=== PATIENT | male | born 1965 | race Caucasian/White ===

== ENCOUNTER → 2017-07-24 | Outpatient (CLI) | payer OTHER ==
[~2017-07-24] MED LIST: OMEP20CA59 PO
--- NOTE | 2017-07-24 08:55 | DIAGNOSTIC IMAGING REPORT ---
SINUSES-MAXILLOFACIAL W/O CT DOSE: 269.19 mGycm HISTORY: Sinusitis. Tendinous. J01.90 Acute ovpispwgoD67.80 Eustachian tube wxrbiaivzleW77.12 T TECHNIQUE: Multiaxial CT images of the paranasal sinuses were performed and reformatted in the coronal plane without the use of contrast. A dose lowering technique was utilized adhering to the principles of ALARA. COMPARISON: None. FINDINGS: Mastoid air cells are considered clear. Structures of the middle ear are unremarkable bilaterally. The ossicles are intact. Mild mucosal thickening of the ethmoid as well as sphenoid and maxillary sinuses. Soft tissue occlusion of the ostiomeatal bilaterally. Frontal sinuses are considered clear. No evidence for a bony destructive process. The nasal septum is midline. The orbits are unremarkable. IMPRESSION: 1. Mild/moderate mucosal thickening of virtually all major sinuses. 2. Soft tissue occlusion of the ostiomeatal units bilaterally. 3. The mastoids are clear. The above report was generated using voice recognition software. It may contain grammatical, syntax or spelling errors. Electronically signed by: Enrique Agudelo M.D. 07/24/2017 8:50 AM Dictated Date/Time: 07/24/2017 8:48 AM
== END | disposition home or self-care (01) ==
LOC: C.CTS 08:14
PROVIDERS: ATTEND Physician Assistant Medical
DX: H69.80 Other specified disorders of Eustachian tube, unspecified ear (principal); H93.12 Tinnitus, left ear; J01.90 Acute sinusitis, unspecified

== ENCOUNTER → 2017-08-24 | Outpatient (CLI) | payer OTHER ==
--- NOTE | 2017-08-24 12:28 | DIAGNOSTIC IMAGING REPORT ---
FUSION CT SINUSES W/O HISTORY: 52 years-old Male J01.80 Other acute sinusitis COMPARISON: Maxillofacial CT 07/24/2017 TECHNIQUE: Multiple axial CT images of the paranasal sinuses were obtained without contrast. Pipelinefx axial images also submitted. A dose lowering technique was used consistent with the principals of BRONWYN. FINDINGS: Mild mucosal thickening with bubbly secretions involve the sphenoid sinuses. There is mild to moderate right and mild left mucosal thickening of the maxillary sinuses. There is moderate mucosal thickening throughout the ethmoid air cells and inferior frontal sinuses bilaterally. There is slight progression of disease within the ethmoid sinuses and right maxillary sinus from comparison. Mild rightward bowing of the nasal septum. Mucosal thickening at the bilateral maxillary ostiomeatal units is present, right greater than left. Additionally, there is mucosal thickening without obstruction of the bilateral frontal ethmoidal and sphenoethmoidal recesses. There is no Dirk cell identified. No large richard bullosa. The nevin antonella appears normal. No facial bone fracture or dislocation identified. Degenerative changes involve the bilateral temporal mandibular joints. The mastoid air cells and middle ear cavities are clear bilaterally. Soft tissues are unremarkable. The imaged intracranial structures demonstrate no acute abnormality. IMPRESSION: 1. Multifocal paranasal sinus disease as above, slightly progressed from comparison study. 2. Mucosal thickening also involves the bilateral maxillary ostiomeatal units, frontal ethmoidal and sphenoethmoidal recesses. 3. Mild rightward bowing of the nasal septum. The above report was generated using voice recognition software. It may contain grammatical, syntax or spelling errors. Electronically signed by: Jai Simmons M.D. 08/24/2017 12:26 PM Dictated Date/Time: 08/24/2017 12:20 PM
== END | disposition home or self-care (01) ==
LOC: C.CTS 12:05
PROVIDERS: ATTEND Physician Assistant
DX: J01.80 Other acute sinusitis (principal)

== ENCOUNTER → 2017-08-24 | Outpatient (CLI) | payer OTHER ==
[2017-08-24 13:46] LABS: BLOOD UREA NITROGEN 20 mg/dl (7-18); CALCIUM 9.5 mg/dl (8.5-10.1); CARBON DIOXIDE 28 mmol/L (21-32); CREATININE 0.89 mg/dl (0.60-1.40); GLUCOSE 104 mg/dl (70-99); POTASSIUM 4.3 mmol/L (3.5-5.1); SODIUM 138 mmol/L (136-145)
== END | disposition home or self-care (01) ==
LOC: C.LABBC 09:29
PROVIDERS: ATTEND Physician Assistant Medical
DX: I10 Essential (primary) hypertension (principal)

== ENCOUNTER → 2017-11-04 | Outpatient (CLI) | payer OTHER ==
[~2017-11-04] MED LIST changes: +B-COTAB18 PO; +CYAN500T13 PO; +MAGNESIUM PO; -OMEP20CA59 PO; +PRLSR20 PO; +SILD1TAB11 PO; +VITAMIN C PO; +VITAMIN E PO
== END | disposition home or self-care (01) ==
LOC: C.LABBC 10:30
PROVIDERS: ATTEND Nurse Practitioner Adult Health
DX: N52.9 Male erectile dysfunction, unspecified (principal); Z12.5 Encounter for screening for malignant neoplasm of prostate

== ENCOUNTER → 2017-11-05 | Outpatient (CLI) | payer OTHER ==
[2017-11-05 13:07] LABS: BASO % 0.3 %; BASO ABS # 0.02 K/uL (0-0.2); EOS % 3.4 %; EOS ABS # 0.23 K/uL (0-0.5); HEMATOCRIT 44.3 % (42-52); HEMOGLOBIN 15.6 g/dL (14.0-18.0); IG# 0.01 K/uL (0.00-0.02); LYMPH % 28.9 %; LYMPH ABS # 1.95 K/uL (1.2-3.4); MEAN CELL VOLUME 87.9 fL (80-100); MEAN CORPUSCULAR HGB CONC 35.2 g/dl (32-36); MONO % 8.1 %; MONO ABS # 0.55 K/uL (0.11-0.59); NEUT % 59.2 %; NEUT ABS # 3.99 K/uL (1.4-6.5); PLATELET COUNT 246 K/uL (130-400); RED CELL DISTRIBUTION WIDTH CV 13.5 % (11.5-14.5); RED CELL DISTRIBUTION WIDTH SD 43.5 fL (36.4-46.3); WHITE BLOOD COUNT 6.75 K/uL (4.8-10.8)
== END | disposition home or self-care (01) ==
LOC: C.LABBC 11:30
PROVIDERS: ATTEND Nurse Practitioner Adult Health
DX: R97.20 Elevated prostate specific antigen [PSA] (principal)

== ENCOUNTER → 2017-11-09 | Day surgery (SDC) | payer OTHER ==
[2017-10-19 12:19] VITALS: Ht 198.1 cm; Wt 95.5 kg
[~2017-11-09] VITALS: Ht 198.1 cm; Wt 95.5 kg
[~2017-11-09] MED LIST changes: +ATROPINE SULFATE 0.1 MG/ML 5ML SYR IV PRN; +CEFAZOLIN 2000MG IV PUSH 15 ML IV SCH; +DEXAMETHASONE SOD INJ 4 MG/ML VIAL ONE; +EpHEDrine SULFATE INJ 50 MG/ML AMP IV PRN; +EpINEphrine INJ 1MG/ML AMP 1 MG/ML AMP ONE; +FENTANYL CITRATE INJ 50 MCG/1 ML 2 ML VIAL ONE; +FLUMAZENIL 0.1 MG/1 ML 10 ML VIAL IV PRN; +GLYCOPYRROLATE INJ 0.2 MG/ML VIAL ONE; +HYDROCODONE/ACETAMIN 5/325MG TAB PO PRN; +HYDROmorphone INJ 2 MG/ML SYR/VIAL IV PRN; +LABETALOL HCL IV 5 MG/ML 20ML IV PRN; +LACTATED RINGER'S 1000ML 1,000 ML IV SCH; +LIDOCAINE 4% MPF SOAK 5 ML = 1 DOSE TOP ONE; +LIDOCAINE HCL 2% 2 ML VIAL (20MG/ML) ONE; +LIDOCAINE HCL 4% TOP 50 ML VIAL EXT ONE; +LIDOCAINE/EPINEPHRINE 1% 20 ML VIAL ONE; +MEPERIDINE HCL 25 MG/ML CARP IV PRN; +MIDAZOLAM HCL 1 MG/ML 2ML VIAL ONE; +NALOXONE HCL 0.4 MG/1 ML VIAL/CARP IV PRN; +NEOSTIGMINE METHYLSULFATE 5 MG/5 ML SYR ONE; +ONDANSETRON INJ 2 MG/ML 2 ML VIAL IV PRN; +ONDANSETRON INJ 2 MG/ML 2 ML VIAL ONE; +OXYMETAZOLINE HCL 0.05% NA SPR 15 ML BTL PRN; +OXYMETAZOLINE HCL 0.05% NA SPR 15 ML BTL SCH; +PHENYLEPHRINE 100MCG/ML 5ML SYR IV PRN; +PROPOFOL IV EMULSION 10 MG/ML 20 ML VIAL IV ONE; +ROCURONIUM BROMIDE 10 MG/ML 5 ML VIAL IV ONE; +TRIAMCINOLONE ACET 40 MG/ML VIAL ONE
--- NOTE | 2017-11-09 07:26 | History and Physical: Surg Cnt ---
History & Physical Date Nov 09, 2017. Chief Complaint SINUSITIS History of Present Illness The patient is a 52 year old male with complaints of CHRONIC POLYPOID RHINOSINUSITIS, SEPTAL DEVIATION, AND BILATERAL INFERIOR TURBINATE HYPERTROPHY WITH PERSISTENT SYMPTOMS DESPITE MAXIMAL MEDICAL RX. Past Medical/Surgical History PMH: ABOVE, GERD, HTN PSH: S/P EGD, S/P WISDOM TEETH EXTRACTION Additional History Hepatic Disease: No Endocrine Disorder: No Kidney Disease: No Hypertension: No Heart Disease: No Bleeding Tendencies: No Infectious Diseases: No Allergies Coded Allergies: NO KNOWN DRUG ALLERGIES (Verified Allergy, Unknown, ., 11/09/17) Home Medications Scheduled B-Complex Vitamins (Vitamin B Complex), 1 TAB PO QAM Cyanocobalamin (Vitamin B12 500MCG), 500 MCG PO QAM Omeprazole (Prilosec), 20 MG PO QPM Sildenafil Citrate (Viagra), 25 MG PO PRN [Magnesium], 1 TAB PO QAM [Vitamin C], 1 TAB PO QAM [Vitamin E], 1 TAB PO QAM Physical Examination Skin: warm/dry, no rash Eyes: normal inspection, EOMI, sclerae normal ENT: + pertinent finding (B NASAL POLYPOSIS, R DNS, L>R ITH) Head: normocephalic, atraumatic Neck: supple, no adenopathy, trachea midline Respiratory/Chest: lungs clear, normal breath sounds, no respiratory distress Cardiovascular: regular rate, rhythm, no edema, no murmur Neurologic/Psych: no motor/sensory deficits, alert, normal reflexes, oriented x 3 Diagnosis CHRONIC POLYPOID RHINOSINUSITIS, SEPTAL DEVIATION, AND BILATERAL INFERIOR TURBINATE HYPERTROPHY Plan of Treatment IMAGE-GUIDED BILATERAL FESS AND INFERIOR TURBINATE REDUCTION, SEPTOPLASTY
--- NOTE | 2017-11-09 09:42 | [facility] Operative Report ---
Operative Report Operative Date Nov 09, 2017. Pre-Operative Diagnosis Chronic Polypoid Rhinosinusitis, Septal Deviation, Bilateral Inferior Turbinate Hypertrophy Post-Operative Diagnosis same Procedure(s) Performed Bilateral Image Guided Endoscopic Sinus Surgery With Septoplasty And Inferior Turbinate Reduction Surgeon Dr. Ivelisse Augustin Cardiac Catheterization Technologist Surgeon(s) 0 Estimated Blood Loss 100cc Findings 1. SEVERE R DNS 2. LARGE R MIDDLE MEATUS POLYP 3. L>R ITH 4. POLYPOID MUCOSAL THICKENING ALL OF THE PARANASAL SINUSES Specimens A. Right Nasal Polyp Anesthesia Type General I attest to the content of the Intraoperative Record and any orders documented therein. Any exceptions are noted below.
--- NOTE | 2017-11-09 09:44 | Discharge Instructions ---
Discharge Instructions Date of Service Nov 09, 2017. Admission Reason for Admission: Nasal Polyps, Chronic Sinusitis, Nasal Septal Elaine Discharge Discharge Diagnosis / Problem: SAME Discharge Goals Goal(s): Therapeutic intervention Activity Recommendations Activity Limitations: as noted below LIGHT ACTIVITY AND NO NOSE BLOWING FOR 2 WEEKS; NO DRIVING WHILE ON NORCO . Current Hospital Diet Patient's current hospital diet: Discharge Diet Recommended Diet: Regular Diet Procedures Procedures Performed: Bilateral Image Guided Endoscopic Sinus Surgery With Septoplasty And Inferior Turbinate Reduction Pending Studies Studies pending at discharge: no Laboratory Results Lipid Panel Test 11/04/17 10:33 Range/Units Triglycerides Level 101 0-150 mg/dl Cholesterol Level 153 0-200 mg/dl HDL Cholesterol 42 mg/dl Cholesterol/HDL Ratio 3.6 LDL Cholesterol, Calculated 91 mg/dl Medical Emergencies . Who to Call and When: Medical Emergencies: If at any time you feel your situation is an emergency, please call 911 immediately. . Non-Emergent Contact Non-Emergency issues call your: Surgeon . . "Provider Documentation" section prepared by Anurag Augustin. .
[2017-11-09] MEDS: FENTANYL CITRATE INJ 50 MCG/1 ML 2 ML VIAL IV PRN ×2 (10:08→10:21)
--- NOTE | 2017-11-09 10:33 | OPERATIVE REPORT ---
DATE OF OPERATION: 11/09/2017 PREOPERATIVE DIAGNOSES: 1. Chronic polypoid rhinosinusitis. 2. Right septal deviation. 3. Left greater than right inferior turbinate hypertrophy. POSTOPERATIVE DIAGNOSES: Same. PROCEDURES: Image-guided bilateral endoscopic sinus surgery consisting of: 1. Bilateral maxillary antrostomies. 2. Bilateral complete ethmoidectomies. 3. Bilateral balloon sinuplasty assisted frontal sinusotomies. 4. Bilateral sphenoidotomies. 5. Septoplasty. 6. Bilateral inferior turbinate outfracture and turbinoplasties. SURGEON: Anurag Augustin MD. ANESTHESIA: General endotracheal. ESTIMATED BLOOD LOSS: 100 mL. FINDINGS: 1. Severe right septal deviation. 2. Right middle meatus polyp. 3. Left greater than right inferior turbinate hypertrophy. 4. Polypoid mucosal thickening involving all of the paranasal sinuses bilaterally. SPECIMENS: Right nasal polyp for permanent pathological assessment. COMPLICATIONS: None. INDICATIONS FOR THE PROCEDURE: The patient is a 52-year-old male with a history of chronic polypoid rhinosinusitis which has been refractory to maximal medical therapy including systemic antibiotics and steroids. A posttreatment fusion CT scan of the sinuses revealed pansinusitis, right septal deviation, and left greater than right inferior turbinate hypertrophy. The patient presents for the above-mentioned procedures on an outpatient elective basis. DETAILS OF THE PROCEDURE: After informed consent had been obtained from the patient, the patient was wheeled to the operating room and placed on the operating room table in supine position. Monitors were placed. After induction of general endotracheal anesthesia, patient was prepped in the usual fashion for image guided sinus surgery. The [employer] fusion headset was placed over the forehead and was registered, calibrated, and verified and used throughout the case, but especially in the frontal and sphenoid sinus portions. Lidocaine and epinephrine pledgets were placed in the bilateral nasal cavities and pressure applied. The left-sided pledgets were removed. A freer elevator was used to medialize the left middle turbinate. The middle turbinate, uncinate process, and lateral nasal wall were injected with 1% lidocaine with 1:100,000 epinephrine. Lidocaine and epinephrine pledget was then placed in the left middle meatus. The right side was then addressed. There was severe right septal deviation that precluded the ability to do endoscopic sinus surgery on that side until a septoplasty was performed. The left-sided pledget was removed. An uncinatectomy was performed using a freer elevator, straight Aba-Cut forceps, and powered instrumentation. The natural ostia of the left maxillary sinus was identified and this was enlarged anteriorly, inferiorly, and posteriorly using backbiting forceps and powered instrumentation. A complete ethmoidectomy was then performed using powered instrumentation. A transethmoid approach to the sphenoid sinus was undertaken and the sphenoid sinus ostia was enlarged medially and inferiorly using powered instrumentation. A frontal sinus, suction was then placed into the left frontal sinus. This was then removed and a #6 frontal sinus balloon was inserted and inflated to 12 atmospheres of pressure. The balloon was then deflated and removed. Polypoid tissue was removed using powered instrumentation. Of note, there was polypoid mucosal thickening involving all the paranasal sinuses on the left side. The septoplasty portion of the procedure was then performed. His nasal septum was injected with 1% lidocaine with 1:100,000 epinephrine. Lidocaine and epinephrine pledgets were placed in the bilateral nasal cavities and pressure applied. The pledgets were then removed. A #15 scalpel was used to make a left hemitransfixion incision through which the left-sided mucoperichondrial and mucoperiosteal flap was elevated. A #15 scalpel was then used to incise the quadrangular cartilage with care to preserve a 1.5 cm dorsal and caudal strut and the right-sided mucoperichondrial and mucoperiosteal flap was elevated through this cartilaginous incision. A Kd swivel knife was then used to remove deviated portion of the quadrangular cartilage which is impinging on the airway quite severely to the right hand side anteriorly and then the mid septum. Guero-Ramos forceps was then used to remove septal bone that was impinging on the airway, but more posteriorly to the right hand side. After removal of this bone, the septum was found to be in midline. The septal cavity was suctioned. The left hemitransfixion incision was closed with several simple interrupted 4-0 chromic sutures. A 4-0 plain gut suture on a Jose Luis needle was then used to perform a quilting stitch of the mucoperichondrial and mucoperiosteal flaps bilaterally to help prevent septal hematoma. The right-sided sinus surgery was then performed in a similar fashion; however, on this side, there was a large polyp filling the right middle meatus. Biopsies of this polyp were undertaken and the specimen sent off for permanent pathological assessment. After removal of the polyp, a right maxillary antrostomy, complete ethmoidectomy, balloon assisted frontal sinusotomy, and sphenoidotomy via transethmoid approach was all undertaken as was on the left hand side. Once again there was polypoid mucosal thickening involving all the paranasal sinuses. A Ruiz elevator was then used to infracture and subsequently outfracture the inferior turbinates bilaterally. These were injected with 1% lidocaine with 1:100,000 epinephrine. A 2.0 mm turbinate blade using powered instrumentation was then used to perform bilateral inferior turbinoplasties in a submucosal fashion. The sinonasal cavities were then suctioned. Stammberger nasal dressing admixed with Kenalog 40 mg per mL was then instilled into the bilateral ethmoid cavity/middle meati. An orogastric tube was placed and the stomach was suctioned free of air and stomach contents. This marked the end of the case. The patient tolerated the procedure well and there were no apparent complications. All the instrumentation was removed from the patient. The patient was extubated and transferred to recovery room in stable condition. I attest to the content of the Intraoperative Record and any orders documented therein. Any exception s are noted below.
[2017-11-09 10:50] VITALS: TEMP 36.4
--- NOTE | 2017-11-09 10:59 | Anesthesia Progress Nt - [facility] ---
Anesthesia Post Op Note Date & Time Nov 09, 2017 at 10:59 Vital Signs Pain Intensity: 6 Vital Signs Past 12 Hours Date Time Temp Pulse Resp B/P (MAP) Pulse Ox O2 Delivery O2 Flow Rate FiO2 11/09/17 10:50 36.4 62 16 147/97 (114) 99 Room Air 11/09/17 10:43 57 7 99 11/09/17 10:43 54 7 11/09/17 10:41 141/94 11/09/17 10:38 79 20 100 11/09/17 10:38 78 20 11/09/17 10:37 52 3 11/09/17 10:37 47 3 100 11/09/17 10:35 131/84 11/09/17 10:33 36.4 53 12 128/88 97 Room Air 11/09/17 10:32 48 4 11/09/17 10:32 51 4 100 11/09/17 10:30 128/88 11/09/17 10:27 51 12 99 11/09/17 10:27 52 12 11/09/17 10:25 124/82 11/09/17 10:22 61 13 100 11/09/17 10:22 60 13 11/09/17 10:21 126/80 11/09/17 10:17 52 10 100 11/09/17 10:17 54 10 11/09/17 10:16 115/77 11/09/17 10:12 48 3 100 11/09/17 10:12 48 3 11/09/17 10:11 131/81 11/09/17 10:07 49 8 11/09/17 10:07 49 8 100 11/09/17 10:06 127/84 11/09/17 10:02 48 9 11/09/17 10:02 47 9 100 11/09/17 10:01 127/90 11/09/17 09:59 50 7 100 11/09/17 09:59 49 7 11/09/17 09:56 135/84 11/09/17 09:54 53 8 100 11/09/17 09:54 53 8 11/09/17 09:50 137/85 11/09/17 09:49 60 14 92 11/09/17 09:49 36.1 58 12 133/87 100 Humidified Oxygen 6 Diffusion Mask 11/09/17 09:49 60 14 11/09/17 07:21 36.8 68 16 145/94 (111) 98 Room Air Notes Mental Status: alert / awake / arousable, participated in evaluation Pt Amnestic to Procedure: Yes Nausea / Vomiting: adequately controlled Pain: adequately controlled Airway Patency, RR, SpO2: stable & adequate BP & HR: stable & adequate Hydration State: stable & adequate Anesthetic Complications: no major complications apparent
[2017-11-09 11:27] VITALS: BP 157/94; PULSE 69; O2SAT 99
== END | disposition home or self-care (01) ==
LOC: X.SURG 06:54
DX: J32.9 Chronic sinusitis, unspecified (principal); J33.9 Nasal polyp, unspecified; J34.3 Hypertrophy of nasal turbinates; K21.9 Gastro-esophageal reflux disease without esophagitis; I10 Essential (primary) hypertension; Z98.818 Other dental procedure status; Z83.6 Family history of other diseases of the respiratory system; Z80.1 Family history of malignant neoplasm of trachea, bronchus and lung; Z82.2 Family history of deafness and hearing loss

== ENCOUNTER → 2018-03-12 | Day surgery (SDC) | payer OTHER ==
[2018-03-03 15:36] VITALS: Ht 198.1 cm; Wt 90.9 kg
[~2018-03-12] VITALS: Ht 198.1 cm; Wt 90.9 kg
[~2018-03-12] MED LIST changes: -ATROPINE SULFATE 0.1 MG/ML 5ML SYR IV PRN; -CEFAZOLIN 2000MG IV PUSH 15 ML IV SCH; -DEXAMETHASONE SOD INJ 4 MG/ML VIAL ONE; -EpHEDrine SULFATE INJ 50 MG/ML AMP IV PRN; -EpINEphrine INJ 1MG/ML AMP 1 MG/ML AMP ONE; -FENTANYL CITRATE INJ 50 MCG/1 ML 2 ML VIAL ONE; -FLUMAZENIL 0.1 MG/1 ML 10 ML VIAL IV PRN; -GLYCOPYRROLATE INJ 0.2 MG/ML VIAL ONE; -HYDROCODONE/ACETAMIN 5/325MG TAB PO PRN; -HYDROmorphone INJ 2 MG/ML SYR/VIAL IV PRN; -LABETALOL HCL IV 5 MG/ML 20ML IV PRN; -LACTATED RINGER'S 1000ML 1,000 ML IV SCH; -LIDOCAINE 4% MPF SOAK 5 ML = 1 DOSE TOP ONE; -LIDOCAINE HCL 2% 2 ML VIAL (20MG/ML) ONE; -LIDOCAINE HCL 4% TOP 50 ML VIAL EXT ONE; -LIDOCAINE/EPINEPHRINE 1% 20 ML VIAL ONE; -MAGNESIUM PO; -MEPERIDINE HCL 25 MG/ML CARP IV PRN; -MIDAZOLAM HCL 1 MG/ML 2ML VIAL ONE; -NALOXONE HCL 0.4 MG/1 ML VIAL/CARP IV PRN; -NEOSTIGMINE METHYLSULFATE 5 MG/5 ML SYR ONE; -ONDANSETRON INJ 2 MG/ML 2 ML VIAL IV PRN; -ONDANSETRON INJ 2 MG/ML 2 ML VIAL ONE; -OXYMETAZOLINE HCL 0.05% NA SPR 15 ML BTL PRN; -OXYMETAZOLINE HCL 0.05% NA SPR 15 ML BTL SCH; -PHENYLEPHRINE 100MCG/ML 5ML SYR IV PRN; -PROPOFOL IV EMULSION 10 MG/ML 20 ML VIAL IV ONE; +PROPOFOL IV EMULSION 10 MG/ML 20 ML VIAL ONE; -ROCURONIUM BROMIDE 10 MG/ML 5 ML VIAL IV ONE; +SODIUM CHLORIDE 0.9% 500ML 500 ML IV ONE; +TADA10TA PO; -TRIAMCINOLONE ACET 40 MG/ML VIAL ONE; +TRIM100T PO
--- NOTE | 2018-03-12 10:05 | Endo History and Physical ---
History & Physical Date of Service: Mar 12, 2018. Chief Complaint: Dr. Tyler Referring Physician: Niya Saucedo History of Present Illness 52 yo CM who presents for screening colonoscopy. Past Surgical History Hx Cardiac Surgery: No Hx Internal Defibrillator: No Hx Pacemaker: No Hx Abdominal Surgery: No Hx of Implantable Prosthesis: No Hx Post-Op Nausea and Vomiting: No Hx Cancer Surgery: No Hx Thoracic Surgery: No Hx Orthopedic: No Hx Urinary Tract Surgery: No Family History None Social History Smoking Status: Never Smoker Hx Substance Use: No Hx Alcohol Use: No Allergies Coded Allergies: NO KNOWN DRUG ALLERGIES (Verified Allergy, Unknown, ., 03/03/18) Current Medications Reported Home Medications Medications Dose Route/Sig Max Daily Dose Days Date Category Cialis (Tadalafil) 10 Mg Tab 10 Mg PO UD 03/12/18 Reported Proloprim (Trimethoprim) 100 Mg Tab 100 Mg PO BID 03/03/18 Reported [Vitamin C] 1 Tab PO QAM 10/19/17 Reported [Vitamin E] 1 Tab PO QAM 10/19/17 Reported Vitamin B12 500MCG (Cyanocobalamin) 500 Mcg Tab 500 Mcg PO QAM 10/19/17 Reported Vitamin B Complex (B-Complex Vitamins) 1 Tab Tab 1 Tab PO QAM 10/19/17 Reported Viagra (Sildenafil Citrate) 25 Mg Tab 25 Mg PO PRN 10/19/17 Reported Prilosec (Omeprazole) 20 Mg Capcr 20 Mg PO QPM 10/19/17 Reported Vital Signs Weight (Kilograms): 90.91 Height (Feet): 6 Height (Inches): 6 Date Time Temp Pulse Resp B/P (MAP) Pulse Ox O2 Delivery O2 Flow Rate FiO2 03/12/18 10:00 36.6 76 18 120/92 (101) 98 Room Air Physical Exam General Appearance: WD/WN, no apparent distress Respiratory/Chest: Auscultation: breath sounds normal Cardiovascular: Heart Auscultation: RRR Abdomen: Bowel Sounds: normal Inspection & Palpation: soft, non-distended, no tenderness, guarding & rebound Assessment and Plan Assessment: 52 yo CM who presents for screening colonoscopy. Plan: Proceed with colonoscopy.
--- NOTE | 2018-03-12 11:11 | Discharge Instructions ---
Endoscopy Patient Instructions Date / Procedure(s) Performed Mar 12, 2018. Colonoscopy Allergy Information Coded Allergies: NO KNOWN DRUG ALLERGIES (Verified Allergy, Unknown, ., 03/03/18) Discharge Date / Findings Mar 12, 2018. Internal hemorrhoids Medication Instructions Stopped Medication(s): Patient was told to not take any of his meds this am. OK to resume all medications today as prescribed Reported Home Medications Medications Dose Route/Sig Max Daily Dose Days Date Category Cialis (Tadalafil) 10 Mg Tab 10 Mg PO UD 03/12/18 Reported Proloprim (Trimethoprim) 100 Mg Tab 100 Mg PO BID 03/03/18 Reported [Vitamin C] 1 Tab PO QAM 10/19/17 Reported [Vitamin E] 1 Tab PO QAM 10/19/17 Reported Vitamin B12 500MCG (Cyanocobalamin) 500 Mcg Tab 500 Mcg PO QAM 10/19/17 Reported Vitamin B Complex (B-Complex Vitamins) 1 Tab Tab 1 Tab PO QAM 10/19/17 Reported Viagra (Sildenafil Citrate) 25 Mg Tab 25 Mg PO PRN 10/19/17 Reported Prilosec (Omeprazole) 20 Mg Capcr 20 Mg PO QPM 10/19/17 Reported Provider Instructions Activity Restrictions - No exercising or heavy lifting for 24 hours. - Do not drink alcohol the day of the procedure. - Do not drive a car or operate machinery until the day after the procedure. - Do not make any important decisions or sign important papers in 24 hours after the procedure. Following Day: - Return to full activity which may include returning to work/school. Diet Start your diet with liquids and light foods (jello, soup, juice, toast). Then eat your usual diet if not nauseated. Treatment For Common After Affects For mild abdominal pain, bloating, or excessive gas: - Rest - Eat lightly - Lie on right side Follow-Up Information Follow-up with Niya Saucedo as scheduled Anesthesia Information What You Should Know You have had a procedure that required some medicine to reduce anxiety and discomfort. This treatment is called moderate sedation. After receiving the treatment, you may be sleepy, but you will be able to breathe on your own. The effects of the treatment may last for several hours. Follow these instructions along with Activity/Diet recommendations noted above: * Do NOT do anything where dizziness or clumsiness would be dangerous. * Rest quietly at home today, then you can be up and about tomorrow. * Have a responsible person stay with you the rest of today. * You may have had an I.V. today. If so, you may take the dressing off later today. Recommendations Call your doctor if: * Trouble breathing * Continuous vomiting for more than 24 hours * Temperature above 101 degrees * Severe abdominal pain or bloating * Pain not relieved by pain medicine ordered * There is increased drainage or redness from any incision * A large amount of rectal bleeding greater than 2-3 tablespoons. (If you had a polyp/s removed or have hemorrhoids, a small amount of blood - from the rectum is to be expected.) * You have any unanswered questions or concerns. IN THE EVENT OF A SERIOUS EMERGENCY, GO TO THE NEAREST EMERGENCY ROOM Your discharge instructions were prepared by provider Lorenzo Tyler. Patient Instructions Signature Page Shaun Averyneelam Patient (or Guardian) Signature/Date: I have read and understand the instructions given to me by my caregivers. Caregiver/RN/Doctor Signature/Date: The above-named patient and/or guardian has received patient instructions on this date. + Original Patient Signature Page (only) stays with chart. Please make copy for patient.
--- NOTE | 2018-03-12 11:30 | GI REPORT ---
Patient Name: Shaun Bell Procedure Date: 03/12/2018 10:30 AM Date of : 1965 Admit Type: Outpatient Age: 52 Gender: Male Attending MD: Lorenzo Tyler DO Procedure: Colonoscopy Providers: Lorezno Tyler DO Referring MD: Roz King Indications: Screening for colorectal malignant neoplasm Medicines: Monitored Anesthesia Care Complications: No immediate complications. Estimated Blood Loss: Estimated blood loss: none. Procedure: Pre-Anesthesia Assessment: - Prior to the procedure, a History and Physical was performed, and patient medications and allergies were reviewed. The patient's tolerance of previous anesthesia was also reviewed. The risks and benefits of the procedure and the sedation options and risks were discussed with the patient. All questions were answered, and informed consent was obtained. Prior Anticoagulants: The patient has taken no previous anticoagulant or antiplatelet agents. ASA Grade Assessment: II - A patient with mild systemic disease. After reviewing the risks and benefits, the patient was deemed in satisfactory condition to undergo the procedure. After I obtained informed consent, the scope was passed under direct vision. Throughout the procedure, the patient's blood pressure, pulse, and oxygen saturations were monitored continuously. The scope was introduced through the anus and advanced to the terminal ileum. The colonoscopy was performed without difficulty. The patient tolerated the procedure well. The quality of the bowel preparation was good. The terminal ileum, ileocecal valve, appendiceal orifice, and rectum were photographed. Findings: The perianal and digital rectal examinations were normal. Non-bleeding internal hemorrhoids were found during retroflexion. The hemorrhoids were small. Impression: - Non-bleeding internal hemorrhoids. - No specimens collected. Recommendation: - Resume previous diet. - Continue present medications. - Repeat colonoscopy in 10 years for surveillance. - Return to primary care physician as previously scheduled. Lorenzo Tyler DO 03/12/2018 11:29:43 AM This report has been signed electronically. Note Initiated On: 03/12/2018 10:30 AM Number of Addenda: 0 I attest to the content of the Intraoperative Record and orders documented therein, exceptions below {[id number]}
[2018-03-12 11:32] VITALS: BP 136/99; PULSE 60; O2SAT 100
--- NOTE | 2018-03-12 11:36 | Anesthesiology Progress Note ---
Anesthesia Post Op Note Date & Time Mar 12, 2018 at 11:36 Vital Signs Pain Intensity: 0 Vital Signs Past 12 Hours Date Time Temp Pulse Resp B/P (MAP) Pulse Ox O2 Delivery O2 Flow Rate FiO2 03/12/18 11:17 64 18 119/85 (96) 99 Room Air 03/12/18 11:03 36.5 72 16 121/82 (95) 95 Room Air 03/12/18 10:00 36.6 76 18 120/92 (101) 98 Room Air Notes Mental Status: alert / awake / arousable, participated in evaluation Pt Amnestic to Procedure: Yes Nausea / Vomiting: adequately controlled Pain: adequately controlled Airway Patency, RR, SpO2: stable & adequate BP & HR: stable & adequate Hydration State: stable & adequate Anesthetic Complications: no major complications apparent
== END | disposition home or self-care (01) ==
LOC: C.GI 09:18
PROVIDERS: ATTEND Internal Medicine
DX: Z12.11 Encounter for screening for malignant neoplasm of colon (principal); K64.8 Other hemorrhoids; I10 Essential (primary) hypertension; K21.9 Gastro-esophageal reflux disease without esophagitis; N41.1 Chronic prostatitis